=== PATIENT | female | born 1935 | race Two or more races ===

== ENCOUNTER 2019-06-08 10:20 | Outpatient (CLI) | payer OTHER | END 2019-06-08 15:11 | disposition home or self-care (01) | LOC: SONOGRAMA 10:20 → MAMO-SONO 10:45 → SONOGRAMA 15:11 | DX: M75.32 Calcific tendinitis of left shoulder (principal); M75.52 Bursitis of left shoulder; M25.512 Pain in left shoulder; M25.412 Effusion, left shoulder ==

== ENCOUNTER → 2020-04-26 17:10 | Outpatient (CLI) | payer OTHER | END | disposition home or self-care (01) | LOC: RAD 17:10 | PROVIDERS: ATTEND Physical Medicine & Rehabilitation Pain Medicine | DX: M25.532 Pain in left wrist (principal); M79.642 Pain in left hand ==

== ENCOUNTER 2021-02-08 08:32 | Outpatient (CLI) | payer OTHER | END 2021-02-08 15:00 | disposition home or self-care (01) | LOC: SONOGRAMA 08:32 | PROVIDERS: ATTEND Family Medicine | DX: R10.84 Generalized abdominal pain (principal); K80.80 Other cholelithiasis without obstruction; N18.30 Chronic kidney disease, stage 3 unspecified; R80.8 Other proteinuria ==

== ENCOUNTER 2021-06-17 08:00 | Outpatient (CLI) | payer OTHER | END 2021-06-17 15:04 | disposition home or self-care (01) | LOC: WOUND MED 08:00 | PROVIDERS: ATTEND Specialist | DX: L97.822 Non-pressure chronic ulcer of other part of left lower leg with fat layer exposed (principal); R60.0 Localized edema | CPT/HCPCS: 11042; 11045; G0463; A4554; A4930; A6216; A6219 ==

== ENCOUNTER 2021-06-24 10:09 | Outpatient (CLI) | payer OTHER | END 2021-06-24 12:23 | disposition home or self-care (01) | LOC: WOUND MED 10:09 | PROVIDERS: ATTEND Specialist | DX: L97.822 Non-pressure chronic ulcer of other part of left lower leg with fat layer exposed (principal); R60.0 Localized edema | CPT/HCPCS: 11042; A4554; A4930; A6216; A6219 ==

== ENCOUNTER 2021-07-02 09:18 | Outpatient (CLI) | payer OTHER | END 2021-07-02 15:20 | disposition home or self-care (01) | LOC: WOUND MED 09:18 | PROVIDERS: ATTEND Specialist | DX: L97.822 Non-pressure chronic ulcer of other part of left lower leg with fat layer exposed (principal); R60.0 Localized edema | CPT/HCPCS: 11042; A4554; A4930; A6216; A6220 ==

== ENCOUNTER 2021-07-09 15:17 | Outpatient (CLI) | payer OTHER | END 2021-07-09 15:59 | disposition home or self-care (01) | LOC: WOUND MED 15:17 | PROVIDERS: ATTEND Specialist | DX: L97.822 Non-pressure chronic ulcer of other part of left lower leg with fat layer exposed (principal); R60.0 Localized edema | CPT/HCPCS: 11042; A4554; A4930; A6216 ==

== ENCOUNTER 2022-09-30 07:56 | Outpatient (CLI) | payer OTHER | END 2022-09-30 08:01 | disposition home or self-care (01) | LOC: SONOGRAMA 07:56 | PROVIDERS: ATTEND Family Medicine | DX: R10.11 Right upper quadrant pain (principal) ==